=== PATIENT | male | born 1990 | race Caucasian/White ===

== ENCOUNTER 2018-05-10 00:27 | Emergency (ER) | payer SELFPAY ==
[2018-05-10] MEDS ORDERED: Tdap Vaccine 0.5 ml Vial (10-64 yrs) IM ONE (01:10)
[2018-05-10] MEDS ORDERED: LIDOCAINE 2% 10ML 20 MG/ML VIAL IJ STA (01:10)
[2018-05-10] MEDS ORDERED: Lidocaine 2% MPF (5 ml) Inj ONE (01:16)
--- NOTE | 2018-05-10 02:39 | ED PDOC ---
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 Patient reports he was cooking and the knife slipped causing him to cut himself. He states pain is minimal and localized, rating it a 2/10. He is right hand dominant. He denies any other medical complaints. PMD: None provided. Past Medical History Reviewed: Historical Data, Nursing Documentation, Vital Signs Vital Signs: Last Vital Signs Temp 98.2 F 05/10/18 01:00 Pulse 95 H 05/10/18 01:00 Resp 16 05/10/18 01:00 BP 132/78 05/10/18 01:00 Pulse Ox 99 05/10/18 01:00 - Medical History PMH: No Chronic Diseases - Surgical History Surgical History: No Surg Hx - Family History Family History: States: Unknown Family Hx - Home Medications Home Medications: Ambulatory Orders Medication Instructions Recorded Bacitracin Ointment [Bacitracin] 1 applic TOP BID #1 tube 05/10/18 - Allergies Allergies/Adverse Reactions: Allergies Allergy/AdvReac Type Severity Reaction Status Date / Time No Known Allergies Allergy Verified 05/10/18 01:00 Review of Systems ROS Statement: Except As Marked, All Systems Reviewed And Found Negative Musculoskeletal: Positive for: Hand Pain (left third digit laceration) Physical Exam - Reviewed Nursing Documentation Reviewed: Yes Vital Signs Reviewed: Yes - Physical Exam Comments: GENERAL APPEARANCE: Patient is awake, alert, oriented x 3, in no acute distress. SKIN: Warm, dry; (-) cyanosis. CHEST AND RESPIRATORY: (-) chest wall tenderness. Lungs: (-) rales, (-) rhonchi, (-) wheezes; breath sounds equal bilaterally. HEART AND CARDIOVASCULAR: (-) irregularity; (-) murmur, (-) gallop. HAND: (+) Full ROM of all digits of left hand. (+) Cap refill and sensation intact. (-) swelling, (-) ecchymosis or erythema. (-) deformity. (-) distal neurovascular deficit. (+) 1cm superficial linear horizontally oriented laceration to the radial aspect of distal left 3rd digit with active bleeding. No nail or tendon involvement. NEURO AND PSYCH: Mental status as above. - ECG O2 Sat by Pulse Oximetry: 99 (RA) Pulse Ox Interpretation: Normal Medical Decision Making Medical Decision Making: Time: 01:02 Initial Impression: Finger laceration Initial Plan: --Adacel 0.5 ml IM --Lidocaine 2% 5 mg IJ --Reevaluation 0220 Laceration repair performed by Korteny DELCID. See procedure note for details. Suture removal advised in 1 week. Educated on wound care. 0240 On re-evaluation, patient reports improvement of symptoms. On exam, patient remains AAOx3, in no acute distress. Lungs clear to auscultation, cardiac RRR, repeat neuro exam shows no focal findings. VSS, stable for discharge. Lab/Diagnostic results d/w the patient in great detail. Diagnosis of finger laceration d/w the patient. Based on history, exam and diagnostic results, plan will be for outpatient follow up. Patient instructed to follow-up with pmd / referral provided / the clinic in 1- 2 days without fail. Advised to take medication as prescribed. Return to the emergency room at any time for any new or worsening symptoms. Patient states he fully agrees with and understands discharge instructions. States that he agrees with the plan and disposition. Verbalized and repeated discharge instructions and plan. I have given the patient opportunity to ask any additional questions. Scribe Attestation: Documented by Frederick Caal, acting as a scribe for Pennie Sheets PA-C. Provider Scribe Attestation: All medical record entries made by the Scribe were at my direction and personally dictated by me. I have reviewed the chart and agree that the record accurately reflects my personal performance of the history, physical exam, medical decision making, and the department course for this patient. I have also personally directed, reviewed, and agree with the discharge instructions and disposition. Disposition - Clinical Impression Clinical Impression: Finger laceration - Patient ED Disposition Is Patient to be Admitted: No Counseled Patient/Family Regarding: Studies Performed, Diagnosis, Need For Followup, Rx Given - Disposition [facility]errals: [facility] [Outside] Disposition: Routine/Home Disposition Time: 02:40 Condition: STABLE Additional Instructions: SUTURE REMOVAL IN 1 WEEK. KEEP WOUND CLEAN AND DRY. CLEAN TWICE DAILY WITH SOAP AND WATER. The emergency medical care you received today was directed towards the acute presenting symptoms. If you were prescribed any medication, please fill it and give as directed. It may take several days for your symptoms to resolve. Return to the Emergency Department at any time if symptoms worsen, do not improve, or if any other problems arise. Please contact your doctor in 2 days for re-evaluation and follow up / or call one of the physicians/clinics you have been referred to that are listed on the Patient Visit Information form that is included in your discharge packet. Bring any paperwork you were given at discharge with you along with any medications to your follow up visit. Our treatment cannot replace ongoing medical care by a primary care provider (PCP) outside of the emergency department. Prescriptions: Bacitracin Ointment [Bacitracin] 1 applic TOP BID #1 tube Instructions: Wound Care, Laceration Repair With Stitches (DC), Common Finger Injuries Forms: Olery (Faroese) Print Language: BENGALI - POA Present On Arrival: None Procedure: Wound Repair - Time Performed Time Performed: 02:20 - Time Out Time Out: Side verified, Site verified, Patient ID confirmed - Procedure Procedure: Wound Repair: Finger Laceration - Consent Obtained Consent obtained: Verbal - Performed by Performed by: Mid-level Provider (Kortney DELCID) - Indications Indication(s):: Laceration - Location Location:: Left Finger:: Middle Dimensions Length cm: 1 Depth:: Epidermis - Anesthetic Technique Anesthetic Technique: Local Local/Regional Anesthetic:: Lidocaine 2% (1.5mL) - Debris Debris:: None - Irrigated Irrigated with ml of normal saline: 200 - Complexity Complexity:: Simple (one layer) - Wound repair method Sutures:: # (2x 5-0 prolene) - Complications Complications: None - Patient tolerated procedure Patient Tolerated Procedure:: Well (Bacitracin and bandaid applied.)
[2018-05-10 04:27] VITALS: BP 119/80; PULSE 75; RESP 18; TEMP 97.8
[2018-05-10 04:38] VITALS: O2SAT 99
== END 2018-05-10 03:02 | disposition home or self-care (01) ==
LOC: H.ER 00:27
DX: S61.203A Unspecified open wound of left middle finger without damage to nail, initial encounter (principal); W26.0XXA Contact with knife, initial encounter; Y92.89 Other specified places as the place of occurrence of the external cause